=== PATIENT | female | born 1950 | race Caucasian/White ===

== ENCOUNTER → 2017-09-14 | Outpatient (CLI) | payer MEDICARE, BC ==
[~2017-09-14] MED LIST: ALPRAZOLAM ER1 MG; ALPRAZOLAM PO; CYMBALTA60 MG PO; FEMARA2.5 MG; FENTANYL PA25 MCG/HR TP; GLUCOPHAGE XR500 MG; GLUCOPHAGE XR500 MG PO; HYDROCHLOROTH12.5 MG PO; IRON PO; JANUVIA100 MG PO; LIDOCAINE PAIN1 EACH TOP; MEDROLDOSEPACK PO; NEURONTIN 300300 M1; NEXIUM40 MG PO; NORCO 5-325 TA1 EACH PO; OXYCONTIN PO; PAXIL10 MG; PERCOCET 5-3251 EACH; PERCOCET 5-3251 EACH PO; PHENERGAN PO; TOPROL XL25 MG; TRAMADOL 50 MG50 MG; ZOFRAN4 MG PO; ZOLOFT 50 MG TA50 M1
== END ==
LOC: M.RAD 13:02
DX: Z12.31 Encounter for screening mammogram for malignant neoplasm of breast (principal); M85.89 Other specified disorders of bone density and structure, multiple sites; M81.0 Age-related osteoporosis without current pathological fracture; C50.112 Malignant neoplasm of central portion of left female breast; I10 Essential (primary) hypertension; E11.9 Type 2 diabetes mellitus without complications; E78.00 Pure hypercholesterolemia, unspecified; K21.9 Gastro-esophageal reflux disease without esophagitis; Z78.0 Asymptomatic menopausal state

== ENCOUNTER 2018-01-03 04:57 | Emergency (ER) | payer MEDICARE, BC, MEDICAID ==
[~2018-01-03] VITALS: Ht 160 cm; Wt 63.5 kg
[~2018-01-03 04:57] MED LIST changes: -LIDOCAINE PAIN1 EACH TOP; -NEURONTIN 300300 M1; -NORCO 5-325 TA1 EACH PO; -PAXIL10 MG; -TRAMADOL 50 MG50 MG
[2018-01-03] MEDS ORDERED: NEURONTIN 300300 M1 (05:22)
[2018-01-03] MEDS ORDERED: PAXIL10 MG (05:22)
[2018-01-03] MEDS ORDERED: TRAMADOL 50 MG50 MG (05:24)
[2018-01-03 05:37] LABS: ABSOLUTE BASOPHILS 0.1 thou/uL (0.0-0.2); ABSOLUTE EOSINOPHILS 0.3 thou/uL (0.0-0.7); ABSOLUTE LYMPHOCYTES 2.3 thou/uL (0.8-5.3); ABSOLUTE MONOCYTES 0.4 thou/uL (0.0-1.2); ABSOLUTE NEUTROPHILS 2.7 thou/uL (1.6-8.1); BASOPHILS 1.2 %; EOSINOPHILS 4.4 %; HEMATOCRIT 34.8 % (37.0-47.0); HEMOGLOBIN 11.5 gm/dL (12.0-15.0); LYMPHOCYTES 40.1 %; MCH 29.1 pg (26.0-34.0); MCHC 32.9 g/dL (28.0-37.0); MCV 88.5 fL (80.0-100.0); MONOCYTES 7.8 %; MPV 8.6 fl. (7.2-11.1); NUCLEATED RBCS 0 /100WBC; PLATELET COUNT* 227 thou/uL (150-400); POLYS 46.5 %; RBC 3.93 mil/uL (4.20-5.00); RDW-CV 16.3 % (10.5-14.5); WBC 5.7 thou/uL (4.0-11.0)
[2018-01-03 05:47] LABS: ANION GAP 9 mmol/L (7-16); BUN 14 mg/dL (7-18); CALCIUM 8.4 mg/dL (8.5-10.1); CHLORIDE 105 mmol/L (98-107); CO2 28 mmol/L (21-32); CREATININE 0.9 mg/dL (0.6-1.3); GLUCOSE 67 mg/dL (70-99); POTASSIUM 3.8 mmol/L (3.5-5.1); SODIUM 142 mmol/L (136-145)
[2018-01-03 05:52] LABS: PROTIME 10.4 Seconds (9.20-11.50)
[2018-01-03 05:55] LABS: ALBUMIN 3.2 g/dL (3.4-5.0); ALKALINE PHOSPHATASE 106 U/L (46-116); NT-PRO BRAIN NAT PEPTIDE 262 pg/mL (<300); SGOT 19 U/L (15-37); SGPT 13 U/L (30-65); TOTAL BILIRUBIN 0.4 mg/dL (<0.1-1.0); TOTAL PROTEIN 6.7 g/dL (6.4-8.2); TROPONIN-I LEVEL <0.06 ng/mL (<0.06)
[2018-01-03 06:22] LABS: AMP/METHAMP Negative (Negative); BARBITURATES Negative (Negative); BENZODIAZEPINES POSITIVE (Negative); COCAINE Negative (Negative); METHADONE Negative (Negative); OPIATES Negative (Negative); PCP Negative (Negative); THC POSITIVE (Negative)
[2018-01-03 06:23] LABS: URINE BILIRUBIN NEGATIVE (Negative); URINE BLOOD NEGATIVE (Negative); URINE CLARITY CLEAR; URINE COLOR YELLOW; URINE GLUCOSE-RANDOM NEGATIVE (Negative); URINE KETONES NEGATIVE (Negative); URINE LEUKOCYTES-REFLEX NEGATIVE (Negative); URINE NITRITE-REFLEX NEGATIVE (Negative); URINE PROTEIN TRACE (Negative); URINE SPECIFIC GRAVITY >= 1.030 (1.005-1.030); URINE UROBILINOGEN 0.2 E.U./dl (0.2-1.0)
[2018-01-03] MEDS ORDERED: NORCO 5-325 TA1 EACH PO (07:39)
[2018-01-03] MEDS ORDERED: LIDOCAINE PAIN1 EACH TOP (07:40)
[2018-01-03 07:58] VITALS: BP 123/67
--- NOTE | 2018-01-03 15:29 | EKG ---
[place] [address] ELECTROCARDIOGRAM REPORT Name: RAY ASHTON Room: [facility]#: [id number] Admission: 01/03/18 Attend Phys: Discharge: 01/03/18 Date of : 48 Report #: [id number] THIS REPORT FOR: //name// [facility] ED Test Date: 2018-01-03 Test Time: 05:26:18 Pat Name: RAY POLI Department: Room: Gender: F Commercial Credit Analyst: JOYA : 1950 Requested By: Jaclyn Hebert Order Number: [id number] MD: Scott Rivers Measurements Intervals [place] Rate: 54 P: 39 [place]: 168 QRS: -9 QRSD: 97 T: -7 QT: 437 QTc: 415 Interpretive Statements Sinus rhythm Probable inferior infarct, age indeterminate Compared to ECG 09/29/2010 11:51:52 Myocardial infarct finding now present Electronically Signed On 01-03-2018 15:28:57 COSMETIC MANAGER by Scott Rivers [email or web address] <ELECTRONICALLY SIGNED> By: Scott Rivers MD, [facility] 01/03/18 1528 5 5 Scott Rivers MD, [facility] /EPI
== END 2018-01-03 07:59 | disposition still patient (30) ==
LOC: M.ERS 04:57
PROVIDERS: Emergency Medicine
DX: S20.221A Contusion of right back wall of thorax, initial encounter (principal); G89.29 Other chronic pain; M54.5 Low back pain; M54.2 Cervicalgia; I10 Essential (primary) hypertension; K21.9 Gastro-esophageal reflux disease without esophagitis; E78.00 Pure hypercholesterolemia, unspecified; Z90.710 Acquired absence of both cervix and uterus; Z98.890 Other specified postprocedural states; Z90.722 Acquired absence of ovaries, bilateral; Z88.5 Allergy status to narcotic agent; Z88.1 Allergy status to other antibiotic agents; Z79.899 Other long term (current) drug therapy; Z88.0 Allergy status to penicillin; Z88.8 Allergy status to other drugs, medicaments and biological substances; W18.39XA Other fall on same level, initial encounter; Y93.89 Activity, other specified; Y92.89 Other specified places as the place of occurrence of the external cause; Y99.8 Other external cause status

== ENCOUNTER 2018-03-17 12:30 | Emergency (ER) | payer MEDICARE, BC, OTHER, MEDICAID ==
[~2018-03-17] VITALS: Ht 160 cm; Wt 57.1 kg
[~2018-03-17 12:30] MED LIST changes: +LIDOCAINE PAIN1 EACH TOP; +NEURONTIN 300300 M1 PO; +NORCO 5-325 TA1 EACH PO; +PAXIL10 MG; -TOPROL XL25 MG; +TOPROL XL25 MG PO; +TRAMADOL 50 MG50 MG
[2018-03-17] MEDS ORDERED: ROPINIROLE HCL5 MG PO (12:53)
[2018-03-17] MEDS ORDERED: CLONAZEPAM 0.50.5 M1 PO (12:53)
[2018-03-17] MEDS ORDERED: PAXIL10 MG PO (12:53)
[2018-03-17] MEDS ORDERED: FOLGARD TABLET1 EAC1 PO (12:54)
[2018-03-17] MEDS ORDERED: UNICOMPLEX M TA1 TA1 PO (12:54)
[2018-03-17] MEDS ORDERED: GLYCOTROL CAPS1 EACH PO (12:54)
[2018-03-17] MEDS ORDERED: PROTONIX40 M1 PO (12:54)
[2018-03-17] MEDS ORDERED: ZOFRAN ODT4 MG DISSOLVE (12:55)
[2018-03-17 13:34] LABS: ABSOLUTE BASOPHILS 0.1 thou/uL (0.0-0.2); ABSOLUTE EOSINOPHILS 0.2 thou/uL (0.0-0.7); ABSOLUTE LYMPHOCYTES 2.2 thou/uL (0.8-5.3); ABSOLUTE MONOCYTES 0.4 thou/uL (0.0-1.2); ABSOLUTE NEUTROPHILS 6.5 thou/uL (1.6-8.1); BASOPHILS 0.7 %; EOSINOPHILS 1.8 %; HEMATOCRIT 30.3 % (37.0-47.0); HEMOGLOBIN 10.2 gm/dL (12.0-15.0); LYMPHOCYTES 23.9 %; MCH 30.8 pg (26.0-34.0); MCHC 33.7 g/dL (28.0-37.0); MCV 91.2 fL (80.0-100.0); MONOCYTES 4.5 %; MPV 7.9 fl. (7.2-11.1); NUCLEATED RBCS 0 /100WBC; PLATELET COUNT* 189 thou/uL (150-400); POLYS 69.1 %; RBC 3.32 mil/uL (4.20-5.00); RDW-CV 14.6 % (10.5-14.5); WBC 9.4 thou/uL (4.0-11.0)
[2018-03-17 13:37] LABS: URINE BILIRUBIN NEGATIVE (Negative); URINE BLOOD NEGATIVE (Negative); URINE CLARITY CLEAR; URINE COLOR YELLOW; URINE GLUCOSE-RANDOM NEGATIVE (Negative); URINE KETONES NEGATIVE (Negative); URINE LEUKOCYTES-REFLEX NEGATIVE (Negative); URINE NITRITE-REFLEX NEGATIVE (Negative); URINE PROTEIN NEGATIVE (Negative); URINE UROBILINOGEN 0.2 E.U./dl (0.2-1.0)
[2018-03-17 13:40] LABS: CALCIUM 8.2 mg/dL (8.5-10.1); CREATININE 0.8 mg/dL (0.6-1.3); POTASSIUM 4.1 mmol/L (3.5-5.1)
[2018-03-17 13:44] LABS: ALBUMIN 2.8 g/dL (3.4-5.0); TOTAL BILIRUBIN 0.3 mg/dL (<0.1-1.0); TOTAL PROTEIN 6.3 g/dL (6.4-8.2)
[2018-03-17 13:45] LABS: AMP/METHAMP Negative (Negative); BARBITURATES Negative (Negative); BENZODIAZEPINES POSITIVE (Negative); COCAINE Negative (Negative); METHADONE Negative (Negative); OPIATES POSITIVE (Negative); PCP Negative (Negative); THC Negative (Negative)
--- NOTE | 2018-03-17 15:24 | EKG ---
[place] [address] ELECTROCARDIOGRAM REPORT Name: RAY ASHTON Room: [facility]#: [id number] Admission: 03/17/18 Attend Phys: Discharge: Date of : 48 Report #: [id number] THIS REPORT FOR: //name// [facility] ED Test Date: 2018-03-17 Test Time: 12:56:16 Pat Name: RAY ASHTON Department: Room: Gender: F Insurance Verify Rep: EMS STUD : 1950 Requested By: Nayla Krishna Order Number: [id number] MD: Mesfin Yuen Measurements Intervals [place] Rate: 68 P: 31 [place]: 155 QRS: -11 QRSD: 87 T: 7 QT: 392 QTc: 417 Interpretive Statements Sinus rhythm Low voltage, precordial leads Nonspecific T abnormalities, anterior leads Compared to ECG 01/03/2018 05:26:18 Low QRS voltage now present T-wave abnormality now present Myocardial infarct finding no longer present Electronically Signed On 03-17-2018 15:24:30 NATIONAL GUARD MEMBER by Mesfin Yuen [email or web address] <ELECTRONICALLY SIGNED> By: Mesfin Yuen MD, FAC 03/17/18 1524 1256 1256 Mesfin Yuen MD, [facility] /EPI
[2018-03-17 18:08] VITALS: BP 134/50
== END 2018-03-17 18:09 | disposition home or self-care (01) ==
LOC: M.ERS 12:30
PROVIDERS: Personal Emergency Response Attendant
DX: S09.90XA Unspecified injury of head, initial encounter (principal); S59.902A Unspecified injury of left elbow, initial encounter; W18.39XA Other fall on same level, initial encounter; Y92.89 Other specified places as the place of occurrence of the external cause; Y93.89 Activity, other specified; Y99.8 Other external cause status

== ENCOUNTER 2018-04-21 14:42 | Observation (INO) | payer MEDICARE, BC, OTHER, MEDICAID ==
[~2018-04-21] VITALS: Ht 160 cm; Wt 59.0 kg
[~2018-04-21 14:42] MED LIST changes: +CLONAZEPAM 0.50.5 M1 PO; +FOLGARD TABLET1 EAC1 PO; +GLYCOTROL CAPS1 EACH PO; +PAXIL10 MG PO; +PROTONIX40 M1 PO; +ROPINIROLE HCL5 MG PO; +UNICOMPLEX M TA1 TA1 PO; +ZOFRAN ODT4 MG DISSOLVE
[2018-04-21 14:48] VITALS: BP 174/69
[2018-04-21 15:29] LABS: URINE BLOOD TRACE (Negative); URINE CLARITY CLEAR; URINE COLOR YELLOW; URINE GLUCOSE-RANDOM NEGATIVE (Negative); URINE KETONES 2+ (Negative); URINE LEUKOCYTES-REFLEX NEGATIVE (Negative); URINE NITRITE-REFLEX NEGATIVE (Negative); URINE PROTEIN TRACE (Negative); URINE SPECIFIC GRAVITY >= 1.030 (1.005-1.030); URINE UROBILINOGEN 0.2 E.U./dl (0.2-1.0)
[2018-04-21 15:31] LABS: ICTOTEST (BILI CONFIRMATORY) Negative (Negative); URINE BILIRUBIN 2+ (Negative)
[2018-04-21 15:36] LABS: ABSOLUTE BASOPHILS 0.1 thou/uL (0.0-0.2); ABSOLUTE EOSINOPHILS 0.2 thou/uL (0.0-0.7); ABSOLUTE LYMPHOCYTES 2.2 thou/uL (0.8-5.3); ABSOLUTE MONOCYTES 0.4 thou/uL (0.0-1.2); ABSOLUTE NEUTROPHILS 2.7 thou/uL (1.6-8.1); BASOPHILS 0.9 %; EOSINOPHILS 3.3 %; HEMATOCRIT 33.9 % (37.0-47.0); HEMOGLOBIN 11.2 gm/dL (12.0-15.0); MCH 29.6 pg (26.0-34.0); MCHC 32.9 g/dL (28.0-37.0); MCV 89.9 fL (80.0-100.0); MONOCYTES 6.7 %; MPV 8.3 fl. (7.2-11.1); NUCLEATED RBCS 0 /100WBC; PLATELET COUNT* 224 thou/uL (150-400); POLYS 49.1 %; RBC 3.76 mil/uL (4.20-5.00); WBC 5.6 thou/uL (4.0-11.0)
[2018-04-21 15:46] LABS: APTT 27.2 Seconds (25.0-31.3); PROTIME 9.8 Seconds (9.20-11.50)
[2018-04-21 15:52] LABS: ALBUMIN 3.3 g/dL (3.4-5.0); ALKALINE PHOSPHATASE 121 U/L (46-116); ANION GAP 6 mmol/L (7-16); BUN 13 mg/dL (7-18); CALCIUM 8.4 mg/dL (8.5-10.1); CHLORIDE 104 mmol/L (98-107); CO2 30 mmol/L (21-32); CREATININE 0.7 mg/dL (0.6-1.3); GLUCOSE 98 mg/dL (70-99); LIPASE 205 U/L (73-393); POTASSIUM 3.9 mmol/L (3.5-5.1); SGOT 15 U/L (15-37); SGPT 14 U/L (30-65); SODIUM 140 mmol/L (136-145); TOTAL BILIRUBIN 0.3 mg/dL (<0.1-1.0); TROPONIN-I LEVEL <0.06 ng/mL (<0.06)
[2018-04-21 17:16] VITALS: BP 174/69
[2018-04-21 18:16] VITALS: BP 166/79
--- NOTE | 2018-04-21 18:23 | NUR ---
PATIENT ADMITTED FROM ER. ALERT DENIES CP OR SOA,.
[2018-04-21 20:30] VITALS: BP 127/49
[2018-04-22] VITALS (8 sets, daily range): BP systolic 137–181; BP diastolic 61–75
[2018-04-22 05:50] LABS: CALCIUM 8.6 mg/dL (8.5-10.1); CREATININE 0.8 mg/dL (0.6-1.3); MAGNESIUM 2.1 mg/dL (1.8-2.4)
[2018-04-22 05:53] LABS: POTASSIUM 4.9 mmol/L (3.5-5.1)
[2018-04-22 07:14] LABS: AMP/METHAMP Negative (Negative); BARBITURATES Negative (Negative); BENZODIAZEPINES Negative (Negative); COCAINE Negative (Negative); METHADONE Negative (Negative); OPIATES Negative (Negative); PCP Negative (Negative); THC Negative (Negative)
--- NOTE | 2018-04-22 08:14 | NUR ---
REPORT GIVEN TO ONCOMING NURSE.
[2018-04-22] MEDS ORDERED: FOLIC ACID1 MG PO (09:45)
--- NOTE | 2018-04-22 11:24 | NUR ---
PT A/O. TELE TRACKING NSR/WILMER AND ALL VSS ON ROOM AIR. PT DENIES CP, DIZZINESS AND SOA. POSITIVE FOR ORTHOSTATIC HYPOTENSION THIS AM- MD AWARE. PT STATES SHE HAS NEVER FELT DIZZY OR LIGHT HEADED, BUT EXPERIENCES SUDDEN BOUTS OF EXTREME FATIGUE RESULTING IN HER TO "PASS OUT" BED ALARM ON AND INSTRUCTED ON USE OF CALL LIGHT FOR ASSIST. EDUCATED ON SAFETY AND PLAN OF CARE. PLEASE SEE ASSESSMENT FOR ADDITIONAL INFORMATION. WILL CONTINUE TO MONITOR
[2018-04-22 14:03] LABS: % SATURATION 9 % (20-39); IRON 34 ug/dL (50-175)
--- NOTE | 2018-04-22 14:28 | NUR ---
PER ORDERS, FAXED FACE SHEET,ORDER FOR 30 DAY CARDIAC EVENT MONITOR TO BE SET UP BY PCP,,H&P AND CONSULT, TO PTS 'S OFFICE-DR.LIN EASON. WILL CALL ON TUESDAY TO CONFIRM THEY RECEIVED INFORMATION.
--- NOTE | 2018-04-22 17:36 | EKG ---
[place] [address] ELECTROCARDIOGRAM REPORT Name: RAY ASHTON Room: [address] IN [facility].#: [id number] Admission: 04/21/18 Attend Phys: Girma Jorge MD Discharge: 04/22/18 Date of : 48 Report #: [id number] THIS REPORT FOR: //name// [facility] ED Test Date: 2018-04-21 Test Time: 14:49:34 Pat Name: RAY ASHTON Department: Room: [facility] Gender: F Repairer: Everton PULIDO : 1950 Requested By: Edmund Wiseman Order Number: [id number] MD: Scott Rivers Measurements Intervals [place] Rate: 52 P: 35 [place]: 175 QRS: 0 QRSD: 111 T: 18 QT: 436 QTc: 406 Interpretive Statements Sinus rhythm Compared to ECG 03/17/2018 12:56:16 T-wave abnormality no longer present Electronically Signed On 04-22-2018 17:36:26 CDT by Scott Rivers [email or web address] <ELECTRONICALLY SIGNED> By: Scott Rivers MD, FACC 04/22/18 1736 1449 1449 Scott Rivers MD, FAC /EPI
== END 2018-04-22 17:12 | disposition home or self-care (01) ==
LOC: M.ERS 14:42 → M.2W 16:33 → M.TBA-ER 16:33 → M.2W 17:42
PROVIDERS: Emergency Medicine; Psychiatry & Neurology Neurology; ADMIT Internal Medicine
DX: R55 Syncope and collapse (principal); R00.1 Bradycardia, unspecified; M50.30 Other cervical disc degeneration, unspecified cervical region; E11.40 Type 2 diabetes mellitus with diabetic neuropathy, unspecified; K21.9 Gastro-esophageal reflux disease without esophagitis; S70.02XA Contusion of left hip, initial encounter; I10 Essential (primary) hypertension; I95.1 Orthostatic hypotension; E53.8 Deficiency of other specified B group vitamins; E78.00 Pure hypercholesterolemia, unspecified; Z88.5 Allergy status to narcotic agent; Z88.8 Allergy status to other drugs, medicaments and biological substances; Z98.890 Other specified postprocedural states

== ENCOUNTER → 2018-05-09 | Outpatient (CLI) | payer MEDICARE, BC, OTHER, MEDICAID ==
[~2018-05-09] MED LIST changes: +FOLIC ACID1 MG PO
--- NOTE | ~2018-05-09 | TST ---
[place] [address] TREADMILL STRESS TEST Name: RAY ASHTON Room: [facility]#: [id number] Admission: 05/09/18 Attend Phys: Ashwini Reynaga MD Discharge: Date of : 48 Date of Service: 05/10/18 1055 Report #: [id number] THIS REPORT FOR: //name// CC: Ashwini Reynaga MD DATE OF SERVICE: 05/10/2018 STUDY: Pharmacologic dobutamine stress test with no imaging. FINDINGS: Resting 12-lead electrocardiogram demonstrates a sinus rhythm with minor nonspecific ST-T alterations and a minor interventricular conduction delay. The patient was infused with dobutamine with a resting heart rate being 58 and peak being 130, target for this test. Blood pressure was 148/73 initially, increasing to 216/47 and falling to 172/49 in the post-exercise phase. There were no ischemic ST-T alterations noted during or post exercise. The patient noted no chest discomfort. There were no significant arrhythmias noted. IMPRESSION: 1. Negative pharmacologic stress test for provocation of ischemic ST-T alterations. 2. No chest pain provoked by exertion. 3. Appropriate heart rate response to dobutamine infusion. 4. Appropriate systolic blood pressure increase in response to dobutamine infusion. 5. No significant arrhythmias noted. By: 1055 2237 Balwinder López MD, FACC /nt
--- NOTE | 2018-05-11 13:40 | EXE ---
[place] [address] STRESS ECHOCARDIOGRAM Name: POLIRAY L Room: [facility]#: [id number] Admission: 05/09/18 Attend Phys: Ashwini Reynaga MD Discharge: Date of : 48 Date of Service: 05/10/18 1059 Report #: [id number] THIS REPORT FOR: //name// APPROVED REPORT Study performed: 05/09/2018 15:42:53 Exam: Dobutamine Stress Echo Indication: Chest pain , Hypertension Patient Location: Out-Patient Stress Nurse: Marixa Dorman RN Supervising Physician: Mesfin Yuen MD Ht: 5 ft 3 in HR: 58 bpm BP: 148/73 mmHg Medical History Medications: No cardiac medications Cardiac Risk Factors: HTN, FHX of CAD, Tobacco History (Former) Procedure The patient underwent a Pharmacological Stress Test using Dobutamine. Blood pressure, heart rate, and EKG were monitored. An Echocardiogram was performed by service technician copier in four stages in quad fashion. At peak stress, four selected images were obtained and placed side by side with resting images for comparison. Stress Test Details Stress Test: Pharmacological Stress Test using Dobutamine. Reason for pharmacologic stress test: physical limitation. HR Resting HR: 58 bpm Max Heart Rate (APMHR): 151 bpm Max HR Achieved: 130 bpm Target HR (85% APMHR): 128 bpm % of APMHR: 86 Recovery HR: 81 bpm HR response to stress: Normal HR response to stress BP Resting BP: 148/73 mmHg Max BP: 216/47 mmHg Recovery BP: 172/49 mmHg ECG Resting ECG: minor nonspecific [place] [address] STRESS ECHOCARDIOGRAM Name: RAY ASHTON Dianne Room: [facility]#: [id number] Admission: 05/09/18 Attend Phys: Ashwini Reynaga MD Discharge: Date of : 48 Date of Service: 05/10/18 1059 Report #: [id number] Stress ECG: no ischemic st-t changes Clinical Reason for Termination: Target heart rate achieved Stress Symptoms: Abdominal discomfort Exercise capacity: 1.00 METs Pre-Stress Echo The resting Echocardiogram showed normal left ventricular contractility with an estimated Ejection Fraction of about 55-60%. Normal wall motion in all segments on baseline images. Post-Stress Echo The stress Echocardiogram showed normal left ventricular contractility with an estimated Ejection Fraction of about >70%. Normal augmentation of wall motion in all segments on post stress images. Conclusion Clinical Response: Non-ischemic Stress ECG Response: Non-ischemic Stress Echo Images: Non-ischemic Other Information Study Quality: Good <ELECTRONICALLY SIGNED> By: Balwinder López MD, FACC 05/10/18 1059 1059 1059 Balwinder López MD, [facility] /INF
== END ==
LOC: M.CRD 11:00
DX: R07.9 Chest pain, unspecified (principal); F41.9 Anxiety disorder, unspecified; I10 Essential (primary) hypertension; Z82.49 Family history of ischemic heart disease and other diseases of the circulatory system; Z81.8 Family history of other mental and behavioral disorders; Z87.891 Personal history of nicotine dependence; Z88.1 Allergy status to other antibiotic agents; Z88.2 Allergy status to sulfonamides; Z88.8 Allergy status to other drugs, medicaments and biological substances; Z79.899 Other long term (current) drug therapy

== ENCOUNTER 2018-11-21 13:05 | Inpatient (IN) | payer MEDICARE, BC, OTHER, MEDICAID ==
[~2018-11-21] VITALS: Ht 160 cm; Wt 62.6 kg
[2018-11-21 17:11] VITALS: BP 187/63
[2018-11-21] MEDS ORDERED: XANAX1 MG PO (17:39)
[2018-11-21] MEDS ORDERED: CYMBALTA60 MG PO (17:40)
[2018-11-21] MEDS ORDERED: REQUIP 1 MG TABL1 M1 PO (17:40)
[2018-11-21 17:44] LABS: HEMATOCRIT 35.6 % (37.0-47.0); MCH 29.6 pg (26.0-34.0); MCHC 33.6 g/dL (28.0-37.0); MCV 88.3 fL (80.0-100.0); MPV 9.2 fl. (7.2-11.1); RBC 4.03 mil/uL (4.20-5.00); RDW-CV 14.2 % (10.5-14.5); WBC 4.3 thou/uL (4.0-11.0)
--- NOTE | 2018-11-21 17:59 | NUR ---
ASSESSMENT COMPLETE. PT ADMITTED FOR WOUND IN RIGHT NARE, MRSA POSITIVE DIRECT ADMISSION FROM PCP OFFICE. PT IS ALERT AND ORIENTEDX4. DENIES PAIN. UP AD MIGUEL. LABS COMPLETED, DR AUGUSTE CONSULT. VANC WITH PHARMACY TO DOSE. IV STARTED IN LEFT AC, SL. SEE ASSESSMENT AND VITALS FOR OTHER DETAILS. SIGNIFICANT OTHER AT BEDSISE. CALL LIGHT WITHIN REACH, WILL CONTINUE PLAN OF CARE
[2018-11-21 18:20] LABS: ALBUMIN 3.5 g/dL (3.4-5.0); CALCIUM 9.2 mg/dL (8.5-10.1); CREATININE 0.8 mg/dL (0.6-1.3); POTASSIUM 4.1 mmol/L (3.5-5.1); TOTAL BILIRUBIN 0.7 mg/dL (<0.1-1.0); TOTAL PROTEIN 7.2 g/dL (6.4-8.2)
[2018-11-21 21:00] VITALS: BP 179/88
[2018-11-22 04:47] LABS: CALCIUM 8.9 mg/dL (8.5-10.1); CREATININE 0.8 mg/dL (0.6-1.3); POTASSIUM 3.4 mmol/L (3.5-5.1)
[2018-11-22 04:59] LABS: ABSOLUTE EOSINOPHILS 0.3 thou/uL (0.0-0.7); ABSOLUTE LYMPHOCYTES 2.2 thou/uL (0.8-5.3); ABSOLUTE MONOCYTES 0.3 thou/uL (0.0-1.2); ABSOLUTE NEUTROPHILS 1.6 thou/uL (1.6-8.1); BASOPHILS 0.9 %; EOSINOPHILS 6.2 %; HEMATOCRIT 35.3 % (37.0-47.0); HEMOGLOBIN 11.7 gm/dL (12.0-15.0); LYMPHOCYTES 49.5 %; MCH 29.5 pg (26.0-34.0); MCHC 33.3 g/dL (28.0-37.0); MCV 88.6 fL (80.0-100.0); MONOCYTES 5.8 %; MPV 9.1 fl. (7.2-11.1); NUCLEATED RBCS 0 /100WBC; PLATELET COUNT* 178 thou/uL (150-400); POLYS 37.6 %; RBC 3.98 mil/uL (4.20-5.00); RDW-CV 14.4 % (10.5-14.5); WBC 4.4 thou/uL (4.0-11.0)
--- NOTE | 2018-11-22 06:07 | NUR ---
PATIENT SLEPT PART OF THE NIGHT. PATIENT WAS GIVEN TRAMDOL TWICE FOR CHRONIC BACK PAIN. IV VANC WAS GIVEN ORDERED. WILL CONTINUE TO MONITOR.
[2018-11-22 09:00] VITALS: BP 129/58
[2018-11-22 15:52] VITALS: BP 128/78
--- NOTE | 2018-11-22 18:48 | NUR ---
PATIENT RESTING IN BED. PATIENT IS UP AD MIGUEL IN ROOM. PATIENT HAS HAD COMPLAINTS OF PAIN TO LEGS AND BACK, DR FALCON AND ORDERS RECEIVED. PATIENT HAS GOOD APPETITE. PATIENT HAS HAD VANCOMYCIN IV ORDERED. PATIENT DENIES ANY NEEDS AT THIS TIME. CALL LIGHT WITHIN REACH.
[2018-11-22 20:51] VITALS: BP 158/72
--- NOTE | 2018-11-23 05:51 | NUR ---
PATIENT SLEPT MOST OF THE NIGHT. IV REMAINS SALINE LOCKED. IV VANC WAS GIVEN ORDERED. PATIENT WAS GIVEN PAIN MEDICINE ONCE THIS SHIFT. PATIENT COULD POSSIBLY GO HOME TODAY. WILL CONTINUE TO MONITOR.
[2018-11-23 07:45] VITALS: BP 157/73
[2018-11-23 09:07] LABS: ABSOLUTE EOSINOPHILS 0.3 thou/uL (0.0-0.7); ABSOLUTE LYMPHOCYTES 1.2 thou/uL (0.8-5.3); ABSOLUTE MONOCYTES 0.2 thou/uL (0.0-1.2); ABSOLUTE NEUTROPHILS 1.3 thou/uL (1.6-8.1); BASOPHILS 1.1 %; EOSINOPHILS 9.1 %; HEMATOCRIT 32.4 % (37.0-47.0); HEMOGLOBIN 10.9 gm/dL (12.0-15.0); MCH 29.6 pg (26.0-34.0); MCHC 33.7 g/dL (28.0-37.0); MCV 87.8 fL (80.0-100.0); MONOCYTES 6.6 %; NUCLEATED RBCS 0 /100WBC; PLATELET COUNT* 151 thou/uL (150-400); POLYS 44.2 %; RBC 3.69 mil/uL (4.20-5.00); RDW-CV 14.3 % (10.5-14.5)
[2018-11-23 09:24] LABS: CALCIUM 9.1 mg/dL (8.5-10.1); CREATININE 0.9 mg/dL (0.6-1.3); POTASSIUM 3.8 mmol/L (3.5-5.1)
--- NOTE | 2018-11-23 09:24 | CON ---
[address] [address] CONSULTATION Name: RAY ASHTON Room: [address] IN ..#: [id number] Admission: 11/21/18 Attend Phys: Abhinav Peter MD Discharge: Date of : 48 Report #: [id number] THIS REPORT FOR: //name// CC: Abhinav Reynaga DATE OF SERVICE: 11/22/2018 INFECTIOUS DISEASE CONSULTATION ATTENDING PHYSICIAN: Abhinav Peter MD REASON FOR EVALUATION: Skin and soft tissue infection with abscess associated with MRSA into the left nasolabial fold. HISTORY OF PRESENT ILLNESS: Chart reviewed, patient examined. This is a 68-year-old woman who developed distribution lesions involving the left nasolabial fold, right upper lip and within the left anterior nares and had persisted with drainage for several days, ultimately his culture with growth of MRSA. It is notable she has multiple hypersensitivities as well. She was denied systemic illness. No significant fevers or chills. She approached of profound weight loss, which she attributes to esophageal torsion of some sort, is unable to eat, but apparently was fixed, although she has severe limitations in what she can eat at this point. No pulmonary-related complaints. She was started on vancomycin. At this point, she is not overtly toxic. ALLERGIES: LISTED TO TERRAMYCIN, ATORVASTATIN, CEPHALEXIN, TETRACYCLINE, ERYTHROMYCIN, SIMVASTATIN, KETOROLAC, PENICILLIN AND LEVAQUIN. MEDICATIONS: Include duloxetine, multivitamin, pantoprazole, vancomycin, gabapentin, ropinirole, alprazolam, enoxaparin, p.r.n. tramadol. PAST MEDICAL HISTORY: History of [place] shunt with reversal, right total knee surgeries, history of hypertension, reflux, previous history of diabetes and elevated cholesterol. PAST SURGICAL HISTORY: Previous tonsillectomy, oophorectomy. SOCIAL HISTORY: Utilizes marijuana, nonsmoker. Occasional ethanol. FAMILY HISTORY: Noncontributory. REVIEW OF SYSTEMS: Otherwise unremarkable with the exception of the above history of present illness. PHYSICAL EXAMINATION: [place] [address] CONSULTATION Name: RAY ASHTON Room: [address]#: [id number] Admission: 11/21/18 Attend Phys: Abhinav Peter MD Discharge: Date of : 48 Report #: [id number] GENERAL: She is alert, cooperative, appears somewhat chronically ill, undernourished. She is lucid, in mild distress. VITAL SIGNS: Temperature 98.2, pulse 63, respirations 18 and blood pressure 128/78. SKIN: Warm, dry. HEENT: Some inflammatory changes noted at nasolabial fold. It is not marked at this point. LUNGS: Diminished breath sounds. HEART: Regular. I do not appreciate murmur. ABDOMEN: Soft, nontender, nondistended. EXTREMITIES: No cyanosis. GENITOURINARY AND RECTAL: Deferred. LABORATORY DATA: CBC: White count 4.3, H and H 12.0 and 35.6, platelets of 208. Lactic acid 1.1. Electrolytes: Sodium 139, potassium 4.1, chloride 101, bicarb is 31, anion gap of 7, BUN and creatinine 6 and 0.8. LFTs unremarkable. Slightly elevated alkaline phosphatase of 148, albumin 3.5 and total protein 7.2. Estimated GFR of 71. Lactic acid 1.1. Blood cultures are sterile thus far. ASSESSMENT AND PLAN: Skin and soft tissue infection associated with the mid face with confirmed MRSA. Continue parenteral therapy with vancomycin, somewhat limited to our options. Given the multiple hypersensitivities, which seemed to be true as opposed to an adverse drug effect, she has experienced some itching. We will add some Benadryl to the pretreatment prior to dosing of the vancomycin, she can tolerate that and see how she does over the course of next 24-48 hours. <ELECTRONICALLY SIGNED> By: Sammy Jackson MD 11/23/18 0924 1739 [id number] Jackson MD /nt
--- NOTE | 2018-11-23 10:22 | NUR ---
cm completed initial assessment to discuss d/c plans. 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 pt is avctive and drives and independent w/adls. pt has appt to be fitted for a brace @ [facility] later this month. pt otherwise has no DMEs. pt has no hx w/ HH. Has prior hx w/[facility]. no anticipated needs at this time. cm to remain avail to assist as needed.
[2018-11-23 14:21] VITALS: BP 158/72
[2018-11-23 15:53] VITALS: BP 154/73
--- NOTE | 2018-11-23 18:37 | NUR ---
PATIENT RESTING IN BED. PATIENT IS UP AD MIGUEL IN ROOM. PATIENT HAS COMPLAINTS OF BACK PAIN, TREATED ADEQUATELY WITH MEDICATION. PATIENT'S IV PULLED OUT THIS EVENING, NURSING FOOD DEHYDRATOR OPERATOR REPLACED NEW IV. PATIENT HAS GOOD APPETITE. PATIENT DENIES ANY NEEDS AT THIS TIME. CALL LIGHT WITHIN REACH.
[2018-11-23 20:20] VITALS: BP 170/72
[2018-11-24 07:09] VITALS: BP 149/79
--- NOTE | 2018-11-24 07:29 | NUR ---
PT SLEPT WELL OVERNIGHT WITHOUT COMPLAINTS. LFA SL IV, ABX GIVEN ORDERED. UP AD MIGUEL IN ROOM VOIDING WITHOUT DIFFICULTY. NO LABS THIS MORNING. ABLE TO USE CALL LITE AND MAKE NEEDS KNOWN. ANTICIPATING DISCHARGE HOME TODAY. REMAINS ON CONTACT ISOLATION FOR MRSA NARES WOUND.
[2018-11-24 11:00] VITALS: BP 158/72
[2018-11-24] MEDS ORDERED: MINOCYCLINE HC100 MG PO (11:03)
--- NOTE | 2018-11-24 11:53 | NUR ---
PT DC HOME. PRESCRIPTION GIVEN AND PT VERBALIZES UNDERSTANDING TO FOLLOW UP WITH DR AUGUSTE IN 2 WEEKS. ALL BELONGINGS SENT WITH PATIENT. PATIENT LEFT WITH PARTNER. SEE ASSESSMENT AND VITALS FOR OTHER DETAILS.
[2018-11-24 11:55] VITALS: BP 158/72
== END 2018-11-24 11:55 | disposition home or self-care (01) | DRG 603 ==
LOC: M.3W 13:05
PROVIDERS: ADMIT Internal Medicine
DX: L03.211 Cellulitis of face (principal); M19.90 Unspecified osteoarthritis, unspecified site; G89.29 Other chronic pain; M54.9 Dorsalgia, unspecified; M77.11 Lateral epicondylitis, right elbow; K21.9 Gastro-esophageal reflux disease without esophagitis; Z88.1 Allergy status to other antibiotic agents; Z88.0 Allergy status to penicillin; Z88.6 Allergy status to analgesic agent; Z88.8 Allergy status to other drugs, medicaments and biological substances; Z22.322 Carrier or suspected carrier of Methicillin resistant Staphylococcus aureus; Z90.710 Acquired absence of both cervix and uterus

== ENCOUNTER 2019-01-14 00:01 | Emergency (ER) | payer MEDICARE, BC, MEDICAID ==
[~2019-01-14] VITALS: Ht 160 cm; Wt 59.0 kg
[~2019-01-14 00:01] MED LIST changes: +MINOCYCLINE HC100 MG PO; +REQUIP 1 MG TABL1 M1 PO; +XANAX1 MG PO
[2019-01-14 00:53] LABS: ABSOLUTE BASOPHILS 0.1 thou/uL (0.0-0.2); ABSOLUTE EOSINOPHILS 0.3 thou/uL (0.0-0.7); ABSOLUTE LYMPHOCYTES 1.8 thou/uL (0.8-5.3); ABSOLUTE MONOCYTES 0.3 thou/uL (0.0-1.2); ABSOLUTE NEUTROPHILS 2.2 thou/uL (1.6-8.1); BASOPHILS 1.2 %; EOSINOPHILS 7.2 %; HEMATOCRIT 34.3 % (37.0-47.0); HEMOGLOBIN 11.4 gm/dL (12.0-15.0); LYMPHOCYTES 37.4 %; MCH 28.7 pg (26.0-34.0); MCHC 33.3 g/dL (28.0-37.0); MCV 86.3 fL (80.0-100.0); MONOCYTES 7.3 %; MPV 9.3 fl. (7.2-11.1); NUCLEATED RBCS 0 /100WBC; PLATELET COUNT* 256 thou/uL (150-400); POLYS 46.9 %; RBC 3.97 mil/uL (4.20-5.00); RDW-CV 14.3 % (10.5-14.5); WBC 4.8 thou/uL (4.0-11.0)
[2019-01-14 00:55] LABS: CALCIUM 8.6 mg/dL (8.5-10.1); CREATININE 0.9 mg/dL (0.6-1.3); POTASSIUM 3.4 mmol/L (3.5-5.1)
[2019-01-14 00:56] LABS: PROTIME 10.7 Seconds (9.20-11.50)
[2019-01-14 01:06] LABS: ALBUMIN 3.6 g/dL (3.4-5.0); MAGNESIUM 2.3 mg/dL (1.8-2.4); TOTAL BILIRUBIN 0.9 mg/dL (<0.1-1.0); TOTAL PROTEIN 7.7 g/dL (6.4-8.2)
[2019-01-14 01:27] LABS: URINE BILIRUBIN NEGATIVE (Negative); URINE BLOOD NEGATIVE (Negative); URINE CLARITY CLEAR; URINE COLOR YELLOW; URINE GLUCOSE-RANDOM NEGATIVE (Negative); URINE KETONES NEGATIVE (Negative); URINE LEUKOCYTES-REFLEX NEGATIVE (Negative); URINE NITRITE-REFLEX NEGATIVE (Negative); URINE PROTEIN NEGATIVE (Negative); URINE SPECIFIC GRAVITY >= 1.030 (1.005-1.030); URINE UROBILINOGEN 0.2 E.U./dl (0.2-1.0)
[2019-01-14 02:18] VITALS: BP 142/66
--- NOTE | 2019-01-14 12:27 | EKG ---
[place] [address] ELECTROCARDIOGRAM REPORT Name: RAY ASHTON Room: [facility]#: [id number] Admission: 01/14/19 Attend Phys: Discharge: 01/14/19 Date of : 48 Report #: [id number] THIS REPORT FOR: //name// [facility] ED Test Date: 2019-01-14 Test Time: 00:10:26 Pat Name: RAY POLI Department: Room: Gender: F Cable Technician: [place] : 1950 Requested By: Jaclyn Hebert Order Number: [id number] MD: Mike Feldman Measurements Intervals [place] Rate: 77 P: 54 PA: 160 QRS: 18 QRSD: 96 T: 73 QT: 374 QTc: 424 Interpretive Statements Sinus rhythm Borderline low voltage, extremity leads Nonspecific T abnormalities, anterior leads Compared to ECG 04/21/2018 14:49:34 T-wave abnormality now present Electronically Signed On 01-14-2019 12:27:43 TALENT ACQUISITION ASSOCIATE by Mike Feldman [email or web address] <ELECTRONICALLY SIGNED> By: Mike Feldman MD, [facility] 01/14/19 1227 0010 0010 Mike Feldman MD, [facility] /EPI
== END 2019-01-14 02:18 | disposition left against medical advice (07) ==
LOC: M.ERS 00:01
PROVIDERS: Emergency Medicine
DX: M54.32 Sciatica, left side (principal); M54.31 Sciatica, right side; R10.84 Generalized abdominal pain; R11.2 Nausea with vomiting, unspecified; I10 Essential (primary) hypertension; E11.9 Type 2 diabetes mellitus without complications; E78.00 Pure hypercholesterolemia, unspecified; K21.9 Gastro-esophageal reflux disease without esophagitis; Z90.710 Acquired absence of both cervix and uterus; Z96.653 Presence of artificial knee joint, bilateral; Z88.1 Allergy status to other antibiotic agents; Z88.6 Allergy status to analgesic agent; Z88.8 Allergy status to other drugs, medicaments and biological substances

== ENCOUNTER 2019-01-29 01:01 | Emergency (ER) | payer MEDICARE, BC, OTHER, MEDICAID ==
[~2019-01-29] VITALS: Ht 160 cm; Wt 59.0 kg
[2019-01-29 02:11] LABS: CALCIUM 8.5 mg/dL (8.5-10.1); POTASSIUM 3.6 mmol/L (3.5-5.1)
[2019-01-29 02:15] LABS: ALBUMIN 3.1 g/dL (3.4-5.0); TOTAL BILIRUBIN 0.7 mg/dL (<0.1-1.0); TOTAL PROTEIN 6.6 g/dL (6.4-8.2)
[2019-01-29 02:17] LABS: ABSOLUTE EOSINOPHILS 0.1 thou/uL (0.0-0.7); ABSOLUTE LYMPHOCYTES 1.7 thou/uL (0.8-5.3); ABSOLUTE MONOCYTES 0.3 thou/uL (0.0-1.2); BASOPHILS 0.2 %; EOSINOPHILS 0.8 %; HEMOGLOBIN 10.4 gm/dL (12.0-15.0); LYMPHOCYTES 18.6 %; MCH 28.7 pg (26.0-34.0); MCHC 33.6 g/dL (28.0-37.0); MCV 85.2 fL (80.0-100.0); MONOCYTES 3.8 %; MPV 9.2 fl. (7.2-11.1); NUCLEATED RBCS 0 /100WBC; PLATELET COUNT* 168 thou/uL (150-400); POLYS 76.6 %; RBC 3.64 mil/uL (4.20-5.00); RDW-CV 14.5 % (10.5-14.5); WBC 9.1 thou/uL (4.0-11.0)
[2019-01-29 02:25] LABS: INFLUENZA A ANTIGEN Negative (Negative); INFLUENZA B ANTIGEN Negative (Negative)
[2019-01-29] MEDS ORDERED: ZOFRAN ODT4 MG PO (03:11)
[2019-01-29 03:35] VITALS: BP 146/82
[2019-01-29] MEDS ORDERED: PROMS25 WY RECTAL (15:58)
[2019-01-29] MEDS ORDERED: BACTRIM DS TAB1 EACH PO (16:17)
== END 2019-01-29 03:40 | disposition home or self-care (01) ==
LOC: M.ERS 01:01
PROVIDERS: Emergency Medicine
DX: R19.7 Diarrhea, unspecified (principal); R11.2 Nausea with vomiting, unspecified; I10 Essential (primary) hypertension; K21.9 Gastro-esophageal reflux disease without esophagitis; Z90.49 Acquired absence of other specified parts of digestive tract; Z90.710 Acquired absence of both cervix and uterus; Z88.0 Allergy status to penicillin; Z88.1 Allergy status to other antibiotic agents; Z88.6 Allergy status to analgesic agent; Z88.8 Allergy status to other drugs, medicaments and biological substances

== ENCOUNTER 2019-01-29 13:53 | Emergency (ER) | payer MEDICARE, BC, OTHER, MEDICAID ==
[~2019-01-29] VITALS: Ht 160 cm; Wt 59.0 kg
[~2019-01-29 13:53] MED LIST changes: +ZOFRAN ODT4 MG PO
[2019-01-29 14:22] LABS: ABSOLUTE LYMPHOCYTES 1.3 thou/uL (0.8-5.3); ABSOLUTE MONOCYTES 0.4 thou/uL (0.0-1.2); ABSOLUTE NEUTROPHILS 8.6 thou/uL (1.6-8.1); BASOPHILS 0.4 %; EOSINOPHILS 0.1 %; HEMOGLOBIN 10.9 gm/dL (12.0-15.0); LYMPHOCYTES 12.3 %; MCH 28.7 pg (26.0-34.0); MCV 84.3 fL (80.0-100.0); MONOCYTES 3.8 %; NUCLEATED RBCS 0 /100WBC; PLATELET COUNT* 182 thou/uL (150-400); POLYS 83.4 %; RBC 3.79 mil/uL (4.20-5.00); RDW-CV 14.4 % (10.5-14.5); WBC 10.3 thou/uL (4.0-11.0)
[2019-01-29 14:26] LABS: CALCIUM 8.5 mg/dL (8.5-10.1); CREATININE 0.9 mg/dL (0.6-1.3)
[2019-01-29 14:31] LABS: ALBUMIN 3.2 g/dL (3.4-5.0); TOTAL BILIRUBIN 1.1 mg/dL (<0.1-1.0); TOTAL PROTEIN 6.8 g/dL (6.4-8.2)
[2019-01-29 15:36] LABS: URINE BILIRUBIN NEGATIVE (Negative); URINE BLOOD NEGATIVE (Negative); URINE CLARITY CLEAR; URINE COLOR YELLOW; URINE GLUCOSE-RANDOM NEGATIVE (Negative); URINE KETONES NEGATIVE (Negative); URINE LEUKOCYTES-REFLEX NEGATIVE (Negative); URINE NITRITE-REFLEX POSITIVE (Negative); URINE PROTEIN NEGATIVE (Negative); URINE UROBILINOGEN 0.2 E.U./dl (0.2-1.0)
[2019-01-29 15:42] LABS: BACTERIA-REFLEX >30 Many /HPF (None Seen); SQUAMOUS >10 Many /LPF (0-3)
[2019-01-29 15:45] LABS: MUCUS None Seen strn/LPF (None Seen); URINE WBC-REFLEX 0-5 Rare /HPF (0-5)
[2019-01-29 15:48] LABS: CASTS None Seen /LPF (None Seen); URINE RBC None Seen /HPF (0-2)
[2019-01-29 15:53] LABS: CRYSTALS None Seen /LPF (None Seen)
[2019-01-29] MEDS ORDERED: PROMS25 WY RECTAL (15:58)
[2019-01-29 16:11] VITALS: BP 124/76
[2019-01-29] MEDS ORDERED: BACTRIM DS TAB1 EACH PO (16:17)
--- NOTE | 2019-01-30 09:38 | EKG ---
[place] [address] ELECTROCARDIOGRAM REPORT Name: RAY ASHTON SAIRA Room: [facility]#: [id number] Admission: 01/29/19 Attend Phys: Discharge: 01/29/19 Date of : 48 Report #: [id number] THIS REPORT FOR: //name// [facility] ED Test Date: 2019-01-29 Test Time: 14:28:02 Pat Name: RAY ASHTON Department: Room: Gender: F Manager Java: ANDRAE : 1950 Requested By: Osiris Bolaños Order Number: [id number] MD: Mike Feldman Measurements Intervals [place] Rate: 86 P: 50 [place]: 133 QRS: 28 QRSD: 88 T: 74 QT: 393 QTc: 470 Interpretive Statements Sinus rhythm Low voltage, precordial leads Nonspecific T abnormalities, anterior leads Compared to ECG 01/14/2019 00:10:26 No significant changes Electronically Signed On 01-30-2019 9:37:53 WHITE LEAD FILTERER by Mike Feldman [email or web address] <ELECTRONICALLY SIGNED> By: Mike Feldman MD, [facility] 01/30/19 0937 1428 1428 Mike Feldman MD, [facility] /EPI
== END 2019-01-29 16:14 | disposition home or self-care (01) ==
LOC: M.ERS 13:53
PROVIDERS: Physician Assistant
DX: N39.0 Urinary tract infection, site not specified (principal); R11.2 Nausea with vomiting, unspecified; I10 Essential (primary) hypertension; K21.9 Gastro-esophageal reflux disease without esophagitis; Z90.49 Acquired absence of other specified parts of digestive tract; Z90.710 Acquired absence of both cervix and uterus; Z88.0 Allergy status to penicillin; Z88.1 Allergy status to other antibiotic agents; Z88.6 Allergy status to analgesic agent; Z88.8 Allergy status to other drugs, medicaments and biological substances

== ENCOUNTER → 2020-11-19 | Outpatient (CLI) | payer MEDICARE, BC, MEDICAID ==
[~2020-11-19] MED LIST changes: +BACTRIM DS TAB1 EACH PO; +PROMS25 WY RECTAL
[2020-11-19 15:29] LABS: ABSOLUTE BASOPHILS 0.1 thou/uL (0.0-0.2); ABSOLUTE EOSINOPHILS 0.3 thou/uL (0.0-0.7); ABSOLUTE LYMPHOCYTES 1.7 thou/uL (0.8-5.3); ABSOLUTE MONOCYTES 0.2 thou/uL (0.0-1.2); ABSOLUTE NEUTROPHILS 3.2 thou/uL (1.6-8.1); HEMOGLOBIN 12.1 gm/dL (12.0-15.0); LYMPHOCYTES 31.1 %; MCH 30.9 pg (26.0-34.0); MCHC 33.7 g/dL (28.0-37.0); MCV 91.8 fL (80.0-100.0); MONOCYTES 4.5 %; MPV 7.7 fl. (7.2-11.1); NUCLEATED RBCS 0 /100WBC; PLATELET COUNT* 261 thou/uL (150-400); POLYS 57.4 %; RBC 3.92 mil/uL (4.20-5.00); RDW-CV 13.9 % (10.5-14.5); WBC 5.5 thou/uL (4.0-11.0)
[2020-11-19 15:42] LABS: ALBUMIN 3.5 g/dL (3.4-5.0); CALCIUM 8.6 mg/dL (8.5-10.1); CREATININE 0.8 mg/dL (0.6-1.3); TOTAL BILIRUBIN 0.3 mg/dL (<0.1-1.0); TOTAL PROTEIN 7.4 g/dL (6.4-8.2)
== END ==
LOC: M.RAD 14:53
PROVIDERS: ATTEND Internal Medicine
DX: M19.011 Primary osteoarthritis, right shoulder (principal); M19.012 Primary osteoarthritis, left shoulder; I10 Essential (primary) hypertension; R06.00 Dyspnea, unspecified

== ENCOUNTER 2021-02-20 10:51 | Observation (INO) | payer MEDICARE, BC, MEDICAID ==
[~2021-02-20] VITALS: Ht 157.5 cm; Wt 92.5 kg
[2021-02-20 11:11] VITALS: BP 155/78
[2021-02-20] MEDS ORDERED: FLEXERIL PO (11:19)
[2021-02-20] MEDS ORDERED: NORVASC 2.5 MG2.5 M1 PO (11:20)
[2021-02-20] MEDS ORDERED: TRAMADOL 50 MG50 MG PO (11:20)
[2021-02-20] MEDS ORDERED: HYDROCODON-ACE1 EAC7 PO (11:20)
[2021-02-20] MEDS ORDERED: LYRICA25 MG PO (11:20)
[2021-02-20] MEDS ORDERED: BUPROPION XL300 MG PO (11:20)
[2021-02-20] MEDS ORDERED: VITAMIN D250 MCG PO (11:21)
[2021-02-20 11:55] LABS: HEMATOCRIT 39.5 % (37.0-47.0); HEMOGLOBIN 13.4 gm/dL (12.0-15.0); MCHC 33.9 g/dL (28.0-37.0); MCV 91.5 fL (80.0-100.0); MPV 8.2 fl. (7.2-11.1); NUCLEATED RBCS 0 /100WBC; PLATELET COUNT* 193 thou/uL (150-400); RBC 4.32 mil/uL (4.20-5.00)
[2021-02-20 12:16] LABS: INFLUENZA A ANTIGEN Negative (Negative); INFLUENZA B ANTIGEN Negative (Negative)
[2021-02-20 12:23] LABS: ABSOLUTE EOSINOPHILS 0.1 thou/uL (0.0-0.7); ABSOLUTE LYMPHOCYTES 0.6 thou/uL (0.8-5.3); ABSOLUTE MONOCYTES 0.7 thou/uL (0.0-1.2); ABSOLUTE NEUTROPHILS 7.6 thou/uL (1.6-8.1)
[2021-02-20 12:24] LABS: PLATELET ESTIMATE ADEQUATE
[2021-02-20 12:45] LABS: ALBUMIN 3.6 g/dL (3.4-5.0); POTASSIUM 3.5 mmol/L (3.5-5.1); TOTAL BILIRUBIN 1.1 mg/dL (<0.1-1.0); TOTAL PROTEIN 7.9 g/dL (6.4-8.2)
--- NOTE | 2021-02-20 13:12 | EKG ---
[place] [address] ELECTROCARDIOGRAM REPORT Name: RAY ASHTON Room: [facility]#: [id number] Admission: 02/20/21 Attend Phys: Discharge: Date of : 48 Date of Service: 02/20/21 1211 Report #: [id number] THIS REPORT FOR: //name// [facility] ED Test Date: 2021-02-20 Test Time: 12:11:49 Pat Name: RAY ASHTON Department: Room: Gender: Assembler [employer]al Parts: : 1950 Requested By: Osiris Bolaños Order Number: [id number] MD: Balwinder López Measurements Intervals [place] Rate: 118 P: 28 [place]: 161 QRS: -16 QRSD: 96 T: 18 QT: 329 QTc: 462 Interpretive Statements Sinus tachycardia Probable left atrial enlargement Inferior infarct, old Anterior infarct, old Compared to ECG 01/29/2019 14:28:02 Myocardial infarct finding now present Sinus rate has increased Anterior precordial ST-T abnormality suggesting ischemia have remitted Electronically Signed On 02-20-2021 13:12:21 [employer] by Balwinder López [email or web address] <ELECTRONICALLY SIGNED> By: Balwinder López MD, FACC 02/20/21 1312 1211 1211 Balwinder López MD, FAC /EPI
[2021-02-20 13:37] LABS: URINE BILIRUBIN NEGATIVE (Negative); URINE BLOOD NEGATIVE (Negative); URINE CLARITY CLEAR; URINE COLOR YELLOW; URINE GLUCOSE-RANDOM TRACE (Negative); URINE KETONES NEGATIVE (Negative); URINE LEUKOCYTES-REFLEX NEGATIVE (Negative); URINE NITRITE-REFLEX NEGATIVE (Negative); URINE PROTEIN NEGATIVE (Negative); URINE SPECIFIC GRAVITY 1.015 (1.005-1.030); URINE UROBILINOGEN 0.2 E.U./dl (0.2-1.0)
[2021-02-20 13:47] LABS: AMP/METHAMP Negative (Negative); BARBITURATES Negative (Negative); BENZODIAZEPINES POSITIVE (Negative); COCAINE Negative (Negative); METHADONE Negative (Negative); OPIATES Negative (Negative); PCP Negative (Negative); THC Negative (Negative)
[2021-02-20 13:51] LABS: BE 0.6 mmol/L (-2 to +3); PCO2 33.3 mmHg (35.0-45.0); PO2 66.8 mmHg (75.0-100.0); pH 7.469 (7.340-7.450)
[2021-02-20 14:00] VITALS: BP 134/78
[2021-02-20 18:00] VITALS: BP 142/85
[2021-02-20 18:55] VITALS: BP 123/60
[2021-02-20 20:00] VITALS: BP 133/55
[2021-02-21] VITALS: BP 135/59
--- NOTE | 2021-02-21 02:58 | NUR ---
INITALLY WEAK AND NOT WANTING TO GET OUT OF BED TO USE BSC. STATES THAT I DIDN'T UNDERSTAND THAT SHE COULD NOT USE HER ARMS FROM PREVIOUS FALLS AND BACK PROBLEMS. EDUCATION GIVEN BUT PT USED BEDPAN. AT PRESENT TIME PT UP TO BSC WITH SBA, VERY STEADY. VOIDING IN LG AMTS WITHOUT DIFFICULTY. C/O MUNSON WITH TYLENOL GIVEN, EFFECTIVE, RETURNED TO SLEEP. TELEMETRY ON SHOWING SR.
[2021-02-21 06:07] VITALS: BP 142/62
[2021-02-21 08:28] VITALS: BP 133/63
[2021-02-21 12:00] VITALS: BP 128/64
[2021-02-21 16:00] VITALS: BP 137/50
[2021-02-21 20:00] VITALS: BP 155/73
[2021-02-22] VITALS (7 sets, daily range): BP systolic 129–168; BP diastolic 55–72
--- NOTE | 2021-02-22 05:21 | NUR ---
ASSUMED PT CARE AT APPROX 1930. PT IS NOT IN DISTRESS, NO DESATURATIONS NOTED ON ROOM AIR. 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 PT HAS CHRONIC BACK PAIN, DENIES THE NEED FOR PAIN MEDS AT THIS TIME. NO ACUTE CHANGES THIS SHIFT, CALL LIGHT WITHIN REACH. HOURLY ROUNDING DONE FOR PT SAFETY. FALL PRECAUTIONS IN PLACE.
[2021-02-22] MEDS ORDERED: CEFDINIR300 MG PO (09:35)
[2021-02-22] MEDS ORDERED: OXYCODONE HCL 55 MG PO (11:30)
== END 2021-02-22 13:11 | disposition home or self-care (01) ==
LOC: M.ERS 10:51 → M.TBA-ER 13:18 → M.2W 13:18
PROVIDERS: Physician Assistant; ADMIT Internal Medicine; ATTEND Internal Medicine
DX: J18.9 Pneumonia, unspecified organism (principal); R00.0 Tachycardia, unspecified; G40.909 Epilepsy, unspecified, not intractable, without status epilepticus; J06.9 Acute upper respiratory infection, unspecified; R41.0 Disorientation, unspecified; I10 Essential (primary) hypertension; K21.9 Gastro-esophageal reflux disease without esophagitis; Z88.1 Allergy status to other antibiotic agents; Z88.0 Allergy status to penicillin; Z88.8 Allergy status to other drugs, medicaments and biological substances; Z90.710 Acquired absence of both cervix and uterus; Z90.49 Acquired absence of other specified parts of digestive tract; Z98.890 Other specified postprocedural states; Z87.891 Personal history of nicotine dependence; W18.39XA Other fall on same level, initial encounter; Y93.89 Activity, other specified; Y92.89 Other specified places as the place of occurrence of the external cause; Y99.8 Other external cause status